=== PATIENT | male | born 1990 | race African-American/Black ===

== ENCOUNTER 2019-03-24 17:28 | Emergency (ER) | payer SELFPAY ==
[~2019-03-24] VITALS: Ht 177.8 cm; Wt 72.0 kg
[2019-03-24] MEDS ORDERED: MORPHINE SULFATE 4 MG/ML CPJ (NOT FOR IM USE) IV STA (18:30)
[2019-03-24] MEDS ORDERED: ONDANSETRON HCL 4MG/2ML INJ IV STA (18:30)
[2019-03-24] MEDS ORDERED: SODIUM CHLORIDE 0.9% 1,000 ML IV ONE (18:30)
[2019-03-24] MEDS ORDERED: ETOMIDATE 2MG/ML 10ML VIAL IV ONE (20:00)
[2019-03-24] MEDS ORDERED: MORPHINE SULFATE 4 MG/ML CPJ (NOT FOR IM USE) IV ONE (20:00)
[2019-03-24 20:07] LABS: HEMATOCRIT. 43.5 % (42.0-52.0); HEMOGLOBIN. 14.2 g/dL (14.0-18.0); MEAN CORPUSCULAR HEMOGLOBIN 31.1 pg (28.0-32.0); MEAN CORPUSCULAR VOLUME 95.2 fL (80.0-94.0); MEAN PLATELET VOLUME 9.6 fl (7.4-10.4); PLATELET 260 x1000/uL (130-400); RED BLOOD CELL COUNT 4.56 mill/uL (4.7-6.1); RED CELL DISTRIBUTION WIDTH 13.6 % (11.6-14.6)
[2019-03-24 20:14] LABS: PARTIAL THROMBOPLASTIN TIME 26.6 sec (23.4-31.0); PROTHROMBIN TIME 10.3 sec (9.6-11.0)
[2019-03-24 20:22] LABS: CHLORIDE 109 mEq/L (98-107)
[2019-03-24 21:49] LABS: PLATELET ESTIMATE NORMAL
[2019-03-24 22:28] VITALS: BP 134/79
== END 2019-03-24 22:37 | disposition home or self-care (01) ==
LOC: ER 17:28
DX: S83.014A Lateral dislocation of right patella, initial encounter (principal); W51.XXXA Accidental striking against or bumped into by another person, initial encounter; Y93.89 Activity, other specified; Y92.018 Other place in single-family (private) house as the place of occurrence of the external cause
CPT/HCPCS: 27560; 36415; 73560; 80053; 85025; 85610; 85730; 86850; 86900; 86901; 93005; 96374; 99152; 99285; J2270; J2405; J3490; J7030; L1830; Z7610

== ENCOUNTER 2023-08-11 15:34 | Emergency (ER) | payer SELFPAY ==
[~2023-08-11] VITALS: Ht 170.2 cm; Wt 72.6 kg
[2023-08-11 15:43] VITALS: O2SAT 97
[2023-08-11 16:46] LABS: BASOPHILS % 0.2 % (0.0-2.0); EOSINOPHILS % 0.2 % (0.0-5.0); HEMATOCRIT. 47.5 % (42.0-52.0); HEMOGLOBIN. 15.5 g/dL (14.0-18.0); LYMPHOCYTES % 8.9 % (20.0-50.0); MEAN CORPUSCULAR HEMOGLOBIN 31.2 pg (28.0-32.0); MEAN CORPUSCULAR HGB CONC 32.6 g/dL (31.0-37.0); MEAN CORPUSCULAR VOLUME 95.8 fL (80.0-94.0); MEAN PLATELET VOLUME 9.3 fl (7.4-10.4); MONOCYTES % 9.7 % (2.0-8.0); PLATELET 298 x1000/uL (130-400); RED BLOOD CELL COUNT 4.95 mill/uL (4.7-6.1); WHITE BLOOD COUNT 14.4 x1000/uL (4.5-11.0)
[2023-08-11 17:05] LABS: CARBON DIOXIDE 31 mEq/L (21-32); CHLORIDE 100 mEq/L (98-107); POTASSIUM 3.1 mEq/L (3.5-5.1); SODIUM 135 mEq/L (136-145)
[2023-08-11 17:06] LABS: CALCIUM 10.3 mg/dL (8.7-10.4)
[2023-08-11 17:10] LABS: GLUCOSE 100 mg/dL (70-105)
[2023-08-11 17:11] LABS: UREA NITROGEN BLOOD 12 mg/dL (9-23)
[2023-08-11 17:12] LABS: ALANINE AMINOTRANSFERASE 89 IU/L (10-49); ALBUMIN 5.1 g/dL (3.2-4.8); ASPARTATE AMINOTRANSFERASE 40 IU/L (<34)
[2023-08-11 17:13] LABS: BILIRUBIN DIRECT 0.1 mg/dL (<=3.0); BILIRUBIN TOTAL 0.4 mg/dL (0.1-1.0); ETHANOL BLOOD < 10 mg/dL (<10); PROTEIN TOTAL 7.7 g/dL (6.0-8.3)
[2023-08-11 17:15] LABS: THYROID STIMULATING HORMONE 3.15 uIU/mL (0.55-4.78)
[2023-08-11 17:16] LABS: AMMONIA < 17 uMol/L (<32)
[2023-08-11 18:14] LABS: CLARITY URINE CLEAR (CLEAR); COLOR URINE YELLOW (YELLOW); GLUCOSE URINE NEGATIVE (NEGATIVE); KETONES URINE TRACE (NEGATIVE); LEUKOCYTE ESTERASE URINE NEGATIVE (NEGATIVE); NITRITE URINE NEGATIVE (NEGATIVE); OCCULT BLOOD URINE 1+ (NEGATIVE); PROTEIN URINE TRACE (NEGATIVE); SPECIFIC GRAVITY URINE 1.029 (1.005-1.030)
[2023-08-11 18:26] LABS: *AMPHETAMINES SCREEN URINE PRESUMPTIVE POSITIVE (NEGATIVE)
[2023-08-11 18:27] LABS: *BARBITURATES SCREEN URINE NEGATIVE (NEGATIVE); *BENZODIAZEPINES SCREEN URINE NEGATIVE (NEGATIVE); *COCAINE SCREEN URINE NEGATIVE (NEGATIVE); CANNABINOID URINE SCREEN PRESUMPTIVE POSITIVE (NEGATIVE); ECSTASY MDMA SCREEN URINE CONF.TEST INDICATED (NEGATIVE); METHADONE URINE SCREEN NEGATIVE (NEGATIVE); OPIATES URINE SCREEN NEGATIVE (NEGATIVE); PHENCYCLIDINE URINE SCREEN NEGATIVE (NEGATIVE)
[2023-08-11] MEDS: POTASSIUM CHLORIDE 20MEQ/PACKET PO NR (18:39)
[2023-08-11 19:00] VITALS: BP 132/70; PULSE 68; RESP 14; TEMP 98
[2023-08-11 19:26] LABS: BACTERIA URINE TRACE; SQUAMOUS EPITHELIAL CELL URINE NONE SEEN /lpf (RARE/1+); WBC URINE 0-2 /hpf (0-2)
== END 2023-08-11 19:00 | disposition home or self-care (01) ==
LOC: ER 15:34
DX: R41.0 Disorientation, unspecified (principal); R41.3 Other amnesia
CPT/HCPCS: 80076; 80305; 80048; 81003; 80307; 80329; 80320; 82140; 84443; 85025; 36415; 70450; 99284; Z7610; G0480